=== PATIENT | female | born 1975 | race Caucasian/White ===

== ENCOUNTER 2019-03-13 14:48 | Emergency (ER) | payer MEDICAID ==
[~2019-03-13] VITALS: Ht 152.4 cm; Wt 46.3 kg
[2019-03-13 14:51] VITALS: Ht 152.4 cm; Wt 46.3 kg
[2019-03-13] MEDS ORDERED: LIDOCAINE 1% (MDV) 10 ML INJ INJ STA (15:43)
[2019-03-13] MEDS ORDERED: LIDOCAINE 1% (MPF) 5 ML VIAL INFIL ONE (16:00)
[2019-03-13] MEDS ORDERED: DIPHTH/TET/ACEL PERTUSS (ADULT) 0.5 ML VIAL IM* ONE (16:00)
[2019-03-13] MEDS ORDERED: KETOROLAC 30 MG INJ IM STA (16:08)
[2019-03-13] MEDS ORDERED: ACETAMINOPHEN 500 MG TAB PO STA (16:44)
[2019-03-13] MEDS ORDERED: ACET325T33 PO (17:01)
[2019-03-13] MEDS ORDERED: CEPH-443 PO (17:01)
[2019-03-13 17:19] VITALS: BP 118/77; PULSE 86; RESP 16
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
== END 2019-03-13 17:20 | disposition home or self-care (01) ==
LOC: FTE 14:48
DX: S61.011A Laceration without foreign body of right thumb without damage to nail, initial encounter (principal); W26.0XXA Contact with knife, initial encounter; Y92.9 Unspecified place or not applicable; Z23 Encounter for immunization
CPT/HCPCS: 12002; 73130; 90471; 90715; Z7502; Z7610

== ENCOUNTER 2019-03-15 11:24 | Emergency (ER) | payer MEDICAID ==
[~2019-03-15] VITALS: Ht 147.3 cm; Wt 46.0 kg
[~2019-03-15 11:24] MED LIST: ACET325T33 PO; CEPH-443 PO
[2019-03-15 11:31] VITALS: BP 110/69; PULSE 79; RESP 18; Ht 147.3 cm; Wt 46.0 kg
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
== END 2019-03-15 13:25 | disposition home or self-care (01) ==
LOC: FTE 11:24
DX: Z48.01 Encounter for change or removal of surgical wound dressing (principal)
CPT/HCPCS: 29130; Z7502